=== PATIENT | female | born 1955 | race Caucasian/White ===

== ENCOUNTER 2016-10-16 19:09 | Emergency (ER) | payer OTHER ==
[2016-10-16 20:12] VITALS: BP 134/79; BMI 31.0
--- NOTE | 2016-10-16 20:36 | PDOC ---
*Physical Exam - Vital Signs Last Vital Signs Temp Pulse Resp BP Pulse Ox 101.4 F H 101 H 18 134/79 98 10/16/16 20:09 10/16/16 20:09 10/16/16 20:09 10/16/16 20:09 10/16/16 20:09 ED Treatment Course - LABORATORY CBC & Chemistry Diagram: 10/16/16 21:32 10/16/16 21:32 Medical Decision Making - Medical Decision Making 10/16/16 20:36 agree with care from [facility] *DC/Admit/Observation/Transfer Diagnosis at time of Disposition: Influenza, Fever - Discharge Dispostion Disposition: HOME Condition at time of disposition: Good - Prescriptions Prescriptions: Oseltamivir Phosphate [Tamiflu] 75 mg PO BID #10 capsule - Referrals Referrals: Sridevi Henry MD [Primary Care Provider] - - Patient Instructions Printed Discharge Instructions: Influenza Additional Instructions: TAKE MEDICATIONS PRESCRIBED. TYLENOL OR MOTRIN FOR FEVER. DRINK LOTS OF FLUIDS (WATER OR GATORADE) UNTIL REGAIN APPETITE. RETURN IF SYMPTOMS WORSEN OR ANY CONCERNS FOR FURTHER EVALUATION. Print Language: UZBEK
[2016-10-16] MEDS ORDERED: ACETAMINOPHEN 500 MG TABLET (FP) PO ONE (21:00)
--- NOTE | 2016-10-16 21:00 | PDOC ---
History of Present Illness - General Chief Complaint: Cold Symptoms Stated Complaint: COLD SYMPTOMS Time Seen by Provider: 10/16/16 20:30 History Source: Patient, Family Exam Limitations: No Limitations - History of Present Illness Initial Comments: 10/16/16 20:55 60yo Female patient presents to ED c/o fever, coughing, body aches, bilateral ear pain beginning today. Patient denies any sick contact. Denies CP, Abd pain, n/v/d, back pain, dysuria, hematuria, diff breathing, or any other complaints at this time. Associated decrease in appetite per daughter. Timing/Duration: 24 hours Severity: moderate Modifying Factors: worse with: cold therapy, eating, immobilization, medication , movement, rest, other Associated Symptoms: reports: cough, fever/chills, malaise, other (Bilateral Ear Pain) Aspirin Received prior to arrival: No: no aspirin today, unknown, 81 mg x 1, 81 mg x 2, 81 mg x 3, 81 mg x 4, 325 mg x 1, provided at home, provided by EMS, provided by ED [facility] Contraindications(Core Measure): No: Allergy, Other, Active Blding w/i 24 hrs., Plavix, Receiving Warfarin Beta Marsha Contraindications(Core Measure): No: Not Prescribed, Allergy, Bradycardia (HR <60bpm), Advanced Heart Block, Pacemaker, Other Past History - Travel Traveled outside of the country in the last 30 days: No Close contact w/someone who was outside of country & ill: No - Past Medical History Allergies/Adverse Reactions: Allergies Allergy/AdvReac Type Severity Reaction Status Date / Time diflunisal [Diflunisal] Allergy Verified 10/16/16 20:08 naproxen Allergy Verified 10/16/16 20:08 Home Medications: Ambulatory Orders Acetaminophen W/ Codeine #3 [Tylenol # 3 -] 1 tab PO Q6H PRN #12 tablet Doxycycline Hyclate [Vibratab -] 100 mg PO BID #28 tablet 03/10/15 Rosuvastatin Calcium [Crestor] 10 mg PO ASDIR 03/10/15 Oseltamivir Phosphate [Tamiflu] 75 mg PO BID #10 capsule 10/16/16 Hypercholesterolemia: Yes - Immunization History Immunization Up to Date: Yes - Psycho/Social/Smoking Cessation Hx Anxiety: No Suicidal Ideation: No Smoking History: Never smoked Have you smoked in the past 12 months: No Information on smoking cessation initiated: No Hx Alcohol Use: No Drug/Substance Use Hx: No Substance Use Type: None Review of Systems - Review of Systems Able to Perform ROS?: Yes Is the patient limited Macedonian proficient: No Constitutional: Yes: Fever, Malaise, Other (Decreased Appetite). No: Chills, Night Sweats HEENTM: No: Eye Pain, Blurred Vision, Double Vision, Nose Congestion, Throat Swelling, Difficulty Swallowing, Mouth Swelling Respiratory: Yes: Cough. No: Shortness of Breath, Stridor, Wheezing Cardiac (ROS): No: Chest Pain, Edema, Palpitations ABD/GI: No: Constipated, Diarrhea, Nausea, Poor Appetite, Vomiting : No: Burning, Dysuria, Flank Pain, Hematuria Musculoskeletal: Yes: Joint Pain. No: Back Pain, Muscle Pain, Muscle Weakness, Joint Stiffness Integumentary: No: Bruising, Dryness, Rash Neurological: No: Headache, Numbness, Paresthesia, Seizure, Tingling, Tremors, Ataxia *Physical Exam - Vital Signs Last Vital Signs Temp Pulse Resp BP Pulse Ox 101.4 F H 101 H 18 134/79 98 10/16/16 20:09 10/16/16 20:09 10/16/16 20:09 10/16/16 20:09 10/16/16 20:09 - Physical Exam General Appearance: Yes: Nourished, Appropriately Dressed, Mild Distress HEENT: positive: EOMI, MARITO, Normal ENT Inspection, Normal Voice, Symmetrical, TMs Normal, Pharynx Normal Neck: positive: Trachea midline, Supple Respiratory/Chest: positive: Lungs Clear, Normal Breath Sounds Cardiovascular: positive: Regular Rhythm, Regular Rate Gastrointestinal/Abdominal: positive: Normal Bowel Sounds, Soft Lymphatic: negative: Adenopathy Musculoskeletal: positive: Normal Inspection. negative: CVA Tenderness Extremity: positive: Normal Capillary Refill, Normal Inspection, Normal Range of Motion Integumentary: positive: Normal Color, Dry, Warm Neurologic: positive: coding auditor II-XII NML intact, Fully Oriented, Alert, Normal Mood/ Affect, Normal Response ED Treatment Course - LABORATORY CBC & Chemistry Diagram: 10/16/16 21:32 10/16/16 21:32 - RADIOLOGY Radiology Studies Ordered: Category Date Time Status CHEST PA & LAT [RAD] Stat Radiology 10/16/16 20:38 Ordered *DC/Admit/Observation/Transfer Diagnosis at time of Disposition: Influenza Fever Qualifiers: Fever type: other Qualified Code(s): R50.81 - Fever presenting with conditions classified elsewhere - Discharge Dispostion Disposition: HOME Condition at time of disposition: Good Admit: No - Prescriptions Prescriptions: Oseltamivir Phosphate [Tamiflu] 75 mg PO BID #10 capsule - Patient Instructions Printed Discharge Instructions: Influenza Additional Instructions: TAKE MEDICATIONS PRESCRIBED. TYLENOL OR MOTRIN FOR FEVER. DRINK LOTS OF FLUIDS (WATER OR GATORADE) UNTIL REGAIN APPETITE. RETURN IF SYMPTOMS WORSEN OR ANY CONCERNS FOR FURTHER EVALUATION. Print Language: TAIWANESE
[2016-10-16] MEDS ORDERED: ACETAMINOPHEN 325 MG TABLET (FP) ONE (21:10)
[2016-10-16 22:04] LABS: BASOPHIL 0.5 % (0-2.0); EOSINOPHIL 0.3 % (0-4.5); MCH 28.7 pg (25.7-33.7); MEAN CELL VOLUME 86.9 fl (80-96); MEAN PLT VOLUME 11.3 fl (7.5-11.1); NEUTROPHILS 63.1 % (42.8-82.8); PLATELET COUNT 124 K/MM3 (134-434); RDW 13.6 % (11.6-15.6); WHITE BLOOD COUNT 6.1 K/mm3 (4.0-10.0)
[2016-10-16] MEDS ORDERED: OSELTAMIVIR PHOSPHATE 75 MG CAPSULE PO ONE (22:19)
[2016-10-16 22:20] LABS: ALBUMIN 3.9 g/dl (3.4-5.0); ALK PHOS 70 U/L (45-117); ANION GAP 8 (8-16); BILIRUBIN,TOTAL 0.4 mg/dL (0.2-1.0); CALCIUM 8.9 mg/dL (8.5-10.1); CO2 27 mmol/L (21-32); CREATININE 0.8 mg/dL (0.55-1.02); GLUCOSE,RANDOM 100 mg/dL (74-106); SGOT/AST 18 U/L (15-37); SGPT/ALT 23 U/L (12-78); TOT PROT 7.2 g/dl (6.4-8.2)
[2016-10-16] MEDS ORDERED: OSELTAMIVIR PHOSPHATE 75 MG CAPSULE ONE (22:46)
[2016-10-16 22:56] VITALS: PULSE 88; TEMP 99.1
== END 2016-10-16 22:55 | disposition home or self-care (01) ==
LOC: JER 19:09
DX: J11.1 Influenza due to unidentified influenza virus with other respiratory manifestations (principal)
CPT/HCPCS: 36415; 71020-TC; 80053; 85025; 99281-25

== ENCOUNTER 2019-05-29 18:46 | Emergency (ER) | payer OTHER ==
[2019-05-29 18:51] VITALS: BP 118/68; PULSE 100; TEMP 98.6; BMI 31.2
[2019-05-29] MEDS ORDERED: DEXAMETHASONE LIQUID 0.5 MG/5 ML 240 ML BULK BOTTLE PO ONE (19:27)
[2019-05-29] MEDS ORDERED: ACETAMINOPHEN 500 MG TABLET (FP) PO ONE (19:27)
--- NOTE | 2019-05-29 19:33 | PDOC ---
History of Present Illness - General Chief Complaint: Sore Throat Stated Complaint: GEN PAIN/COUGH Time Seen by Provider: 05/29/19 19:12 History Source: Patient Exam Limitations: No Limitations - History of Present Illness Initial Comments: 05/29/19 19:28 HISTORY OF PRESENT ILLNESS: This a 63-year-old woman past medical history of hyperlipidemia presents emergency department for evaluation of dry productive cough, sore throat and occasional myalgias. Patient has not taken any over-the- counter medication to control symptoms. Patient recently returned from a trip to [facility] for buddhist reasons. Patient is unsure of any sick contacts. Not on HRT. No sick contacts. Recently to [facility]. PAST MEDICAL HISTORY: Denies past medical history SURGICAL HISTORY: Denies ALLERGIES: NSAID's REVIEW OF SYSTEMS General/Constitutional: Denies fever or chills. Denies weakness, weight change. HEENT: see HPI Cardiovascular: Denies chest pain or shortness of breath. Respiratory: see HPI Gastrointestinal: Denies nausea, vomiting, diarrhea or constipation. Denies rectal bleeding. Genitourinary: Denies dysuria, frequency, or change in urination. Musculoskeletal: Denies joint or muscle swelling or pain. Denies neck or back pain. Skin and breasts: Denies rash or easy bruising. Neurologic: Denies headache, vertigo, loss of consciousness, or loss of sensation. Psychiatric: Denies depression or anxiety. Endocrine: Denies increased thirst. Denies abnormal weight change. Hematologic/Lymphatic: Denies anemia, easy bleeding, or history of blood clots. Allergic/Immunologic: Denies hives or skin allergy. Denies latex allergy. PHYSICAL EXAM General Appearance: Well-appearing, appropriately dressed. No apparent distress , no intoxication. HEENT: EOMI, PERRLA, normal ENT inspection, normal voice, TMs normal. No conjunctival pallor. No photophobia, scleral icterus. OP mildly erythematous with cobblestoning in posterior aspect. Neck: Supple. Trachea midline. No tenderness, rigidity, carotid bruit, stridor , lymphadenopathy, or thyromegaly. Respiratory/Chest: Lungs CTAB. No shortness of breath, chest tenderness, respiratory distress, accessory muscle use. No crackles, rales, rhonchi, stridor , wheezing, dullness Cardiovascular: RRR. S1, S2. No JVD, murmur, bradycardia, tachycardia. Vascular Pulses: Dorsalis-Pedis (R): 2+, Dorsalis-Pedis (L): 2+ Integumentary: Appropriate color, dry, warm. No cyanosis, erythema, jaundice or rash Neurologic: associate vice president II-XII intact. Fully oriented, alert. Appropriate mood/affect. Motor strength 5/5. No appreciable EOM palsy, facial droop or sensory deficit. 05/29/19 19:33 Past History - Past Medical History Allergies/Adverse Reactions: Allergies Allergy/AdvReac Type Severity Reaction Status Date / Time diflunisal [Diflunisal] Allergy Verified 05/29/19 18:51 naproxen Allergy Verified 05/29/19 18:51 Home Medications: Ambulatory Orders Acetaminophen W/ Codeine #3 [Tylenol # 3 -] 1 tab PO Q6H PRN #12 tablet Doxycycline Hyclate [Vibratab -] 100 mg PO BID #28 tablet 03/10/15 Rosuvastatin Calcium [Crestor] 10 mg PO ASDIR 03/10/15 Oseltamivir Phosphate [Tamiflu] 75 mg PO BID #10 capsule 10/16/16 COPD: No Hypercholesterolemia: Yes - Immunization History Immunization Up to Date: Yes - Suicide/Smoking/Psychosocial Hx Smoking History: Never smoked Have you smoked in the past 12 months: No Hx Alcohol Use: No Drug/Substance Use Hx: No Substance Use Type: None *Physical Exam - Vital Signs Last Vital Signs Temp Pulse Resp BP Pulse Ox 98.6 F 100 H 18 118/68 99 05/29/19 18:49 05/29/19 18:49 05/29/19 18:49 05/29/19 18:49 05/29/19 18:49 ED Treatment Course - RADIOLOGY Radiology Studies Ordered: Category Date Time Status CHEST PA & LAT [RAD] Stat Radiology 05/29/19 19:27 Ordered Medical Decision Making - Medical Decision Making 05/29/19 19:32 A/P: 63-year-old woman with 3 days of cough sore throat and body aches Likely viral infection I will get a chest x-ray given patient's age and unreliability. Tylenol 1 g orally now Decadron 10 mg orally now Reassess 05/29/19 19:34 05/29/19 19:51 Chest x-ray as read by me: Angles clear. Cardiac silhouette is within normal limits. Lung eric are clear without consolidation or infiltrate present. Discharge home with supportive treatment for upper respiratory infection. 05/29/19 19:52 *DC/Admit/Observation/Transfer Diagnosis at time of Disposition: Viral illness - Discharge Dispostion Disposition: HOME Condition at time of disposition: Stable Decision to Admit order: No - Referrals Referrals: Sridevi Henry MD [Primary Care Provider] - - Patient Instructions Additional Instructions: Rest, drink lots of fluids: Teas, water, soups, Pedialyte Saltwater gargles Steamy showers/seem to face break up mucus Avoid contact with others until fevers and cough resolved Lots of handwashing and good hygiene Continue [id number] medications for symptomatic relief Tylenol or Motrin for fever and pain Followup with private physician in one to 2 days as needed Return to emergency department for worsened symptoms, fevers, dehydration - Post Discharge Activity
[2019-05-29] MEDS ORDERED: DEXAMETHASONE SOD PHOSPHATE 10 MG/1 ML VIAL ONE (19:34)
[2019-05-29] MEDS ORDERED: ACETAMINOPHEN 500 MG TABLET (FP) ONE (19:35)
== END 2019-05-29 19:55 | disposition home or self-care (01) ==
LOC: JERFT 18:46
DX: J06.9 Acute upper respiratory infection, unspecified (principal); B97.89 Other viral agents as the cause of diseases classified elsewhere
CPT/HCPCS: 71046-TC-FY; 99281-25